=== PATIENT | female | born 1980 | race Caucasian/White ===

== ENCOUNTER 2023-09-14 11:07 | Day surgery (SDC) | payer SELFPAY ==
[2023-09-08 14:12] VITALS: BMI 24.3
[2023-09-14] MEDS ORDERED: BUPIVACAINE HCL/PF 0.25% (2.5MG/ML) 10 ML VIAL ONE (13:32)
[2023-09-14] MEDS ORDERED: LIDOCAINE 1%/EPI 1:100000 (20 ML MULTI DOSE VIAL) ONE ×2 (13:33→13:34)
[2023-09-14] MEDS ORDERED: BUPIVACAINE HCL/PF 2.5 MG/ML - 30 ML VIAL IJ ONE (13:34)
[2023-09-14] MEDS ORDERED: BACITRACIN ZINC 15 GM TUBE TOPICAL OINTMENT ONE ×2 (13:49→18:34)
[2023-09-14] MEDS ORDERED: PROPOFOL 20 ML ONE (15:19)
[2023-09-14] MEDS ORDERED: MIDAZOLAM HCL 2 MG/2 ML SINGLE DOSE VIAL ONE ×2 (15:19→15:37)
[2023-09-14] MEDS ORDERED: DEXAMETHASONE SOD PHOSPHATE 4 MG/1 ML VIAL ONE (15:52)
[2023-09-14] MEDS ORDERED: ONDANSETRON 4 MG/2 ML VIAL ONE (15:52)
[2023-09-14] MEDS: BUPIVACAINE HCL/PF 0.25% (2.5MG/ML) 10 ML VIAL IJ ONE (16:10)
[2023-09-14] MEDS: LIDOCAINE 1%/EPI 1:100000 (20 ML MULTI DOSE VIAL) IJ ONE (16:10)
[2023-09-14] MEDS ORDERED: oxyCODONE HCL 5 MG TABLET PO PRN ×2 (18:08)
[2023-09-14] MEDS ORDERED: PROMETHAZINE HCL 25 MG/1 ML VIAL IVPB PRN (18:08)
[2023-09-14] MEDS ORDERED: FENTANYL CITRATE/PF 50 MCG/ML VIAL ONE (18:10)
[2023-09-14] MEDS: ONDANSETRON 4 MG/2 ML VIAL IVPUSH PRN (18:11)
[2023-09-14] MEDS: ACETAMINOPHEN 1000 MG/100 ML BAG IVPB ONE (18:13)
[2023-09-14] MEDS ORDERED: LACTATED RINGERS SOLUTION 1,000 ML IV SCH (18:15)
[2023-09-14 19:57] VITALS: BP 136/76; PULSE 75; RESP 18; TEMP 98.2
== END 2023-09-14 20:18 | disposition home or self-care (01) ==
LOC: FASU 11:07
PROVIDERS: ATTEND Surgery
CPT/HCPCS: 81025; 94760; J0131